=== PATIENT | female | born 1955 | race Asian ===

== ENCOUNTER 2019-08-16 08:00 | Outpatient (CLI) | payer OTHER, MEDICARE ==
--- NOTE | 2019-08-16 16:59 | XRAY Report ---
PROCEDURE: Foot 3 View RT INDICATIONS: RIGHT FOOT PAIN TECHNIQUE: 3 views of the foot were acquired. COMPARISON: None FINDINGS: Bones: Multiple lucencies are noted within the sesamoid bone overlying the distal aspect of the first metatarsal. No suspicious bony lesions. Soft tissues: No tibiotalar joint effusion. Achilles tendon appears normal. IMPRESSION: Lucencies overlying the sesamoid bones of the first metatarsal as above. While these could represent multipartite sesamoid bones, given history of trauma, fracture cannot be excluded recommend correlati on of point tenderness. Reviewed by: Patricia Huizar MD on 08/16/2019 4:57 PM PDT Approved by: Patricia Huizar MD on 08/16/2019 4:57 PM PDT Station ID: [id number]
--- NOTE | 2019-08-16 17:05 | XRAY Report ---
PROCEDURE: Thoracic Spine 3 View INDICATIONS: STRAIN OF MUSCLE OND TENDON OF BACK WALL OF THORAX TECHNIQUE: 3 views of the thoracic spine were acquired. COMPARISON: None. FINDINGS: Bones: No fractures or dislocations. No suspicious bony lesions. 12 pairs of ribs are noted, and a ppear intact where visualized. Multilevel degenerative disc space narrowing is present throughout th e thoracic spine. Anterior osteophytes are present. Mild straightening of normal cervical curvature. Soft tissues: No paravertebral stripe thickening. IMPRESSION: Degenerative changes within the lumbar spine. No acute osseous abnormality. Reviewed by: Patricia Huizar MD on 08/16/2019 5:04 PM PDT Approved by: Patricia Huizar MD on 08/16/2019 5:04 PM PDT Station ID: [id number]
== END 2019-08-16 23:59 | disposition home or self-care (01) ==
LOC: DI.S 08:00
PROVIDERS: ATTEND Physician Assistant
DX: R93.6 Abnormal findings on diagnostic imaging of limbs (principal); M47.814 Spondylosis without myelopathy or radiculopathy, thoracic region; M51.34 Other intervertebral disc degeneration, thoracic region
CPT/HCPCS: 72072

== ENCOUNTER 2020-07-12 09:40 | Outpatient (CLI) | payer MEDICARE, OTHER ==
--- NOTE | 2020-07-12 15:06 | DEXA Report ---
PROCEDURE: Dexa Spine and/or Hip INDICATIONS: ABN BONE DENSITY SCREENING TECHNIQUE: Dual energy x-ray absorptiometry (DXA) was performed on a [employer] System. Regions measur ed are the AP Spine, femoral neck, and if needed forearm. COMPARISON: None. FINDINGS: Lumbar Spine: Bone Mineral Density 1.543 g/cm/cm,T score 3.0, normal Left Hip: Bone Mineral Density 1.083 g/cm/cm,T score 0.6, normal Left Femoral Neck: Bone Mineral Density 1.015 g/cm/cm, T score -0.2, normal (T score greater or equal to -1.0: NORMAL) (T score from -1.1 to -2.4: OSTEOPENIA) (T score less than or equal to -2.5 to: OSTEOPOROSIS) Impression: Normal bone mineral density. Patients with diagnosis of osteoporosis or osteopenia should have regular bone mineral density assess ment. For those eligible for Medicare, routine testing is allowed once every 2 years. Testing frequ ency can be increased for patients who have rapidly progressing disease or for those who are receivin g medical therapy to restore bone mass. Reviewed by: Patricia Huizar MD on 07/12/2020 3:05 PM PDT Approved by: Patricia Huizar MD on 07/12/2020 3:05 PM PDT Station ID: [id number]
== END 2020-07-12 09:41 | disposition home or self-care (01) ==
LOC: DI 09:40
PROVIDERS: ATTEND Family Medicine
DX: R93.7 Abnormal findings on diagnostic imaging of other parts of musculoskeletal system (principal)

== ENCOUNTER 2020-11-19 10:57 | Outpatient (CLI) | payer MEDICARE | END 2020-11-19 10:58 | disposition home or self-care (01) | LOC: LAB.S 10:57 | PROVIDERS: ATTEND Physician Assistant Medical | DX: R19.00 Intra-abdominal and pelvic swelling, mass and lump, unspecified site (principal) | CPT/HCPCS: 36415; 86304 ==

== ENCOUNTER 2022-06-26 07:09 | Outpatient (CLI) | payer MEDICARE | END 2022-06-26 07:10 | disposition home or self-care (01) | LOC: LAB.S 07:09 | PROVIDERS: ATTEND Obstetrics & Gynecology Gynecologic Oncology | DX: D39.12 Neoplasm of uncertain behavior of left ovary (principal) | CPT/HCPCS: 36415; 86304 ==